=== PATIENT | female | born 1930 | race African-American/Black ===

== ENCOUNTER 2017-08-12 09:51 | Emergency (ER) | payer OTHER ==
[~2017-08-12] VITALS: Ht 170.2 cm; Wt 72.6 kg
[~2017-08-12 09:51] MED LIST: AGGRENOX1 CAP ORAL; ALPRAZOLAM PO; ALPRAZOLAM0.25 M2 ORAL; ASPIR 8181 MG ORAL; CARDIZEM CD240 MG ORAL; LISINOPRIL-HCT1 EAC2 PO; LISINOPRIL10 MG ORAL; MONTELUKAST SOD10 MG ORAL; NAPROSYN500 M1 ORAL; PRAVASTATIN SOD20 M1 ORAL; TRAMADOL HCL50 MG ORAL; VITAMIN D3 1,01 EACH PO; VITAMIN D3 PO
[2017-08-12 10:16] VITALS: BP 158/69
--- NOTE | 2017-08-12 11:50 | Diagnostic Imaging Report ---
Clinical Indication:PAIN Technique: 3 views of the right wrist Comparison: None Findings: There are degenerative changes of the first carpometacarpal joint. The remaining joint spaces are preserved. No acute fractures. No dislocations. The bones are osteoporotic. Impression: No acute bony trauma Degenerative change of the first carpometacarpal joint Osteoporosis
--- NOTE | 2017-08-12 12:17 | Emergency Room Report ---
History of Present Illness General Chief Complaint: Pain Source: Patient, Medical Record Present Illness HPI 86-year-old female presenting with right wrist pain. Patient states this morning she noted that wrist was a little bit more swollen and painful. Does not know she hit it or not. It is worse with movement. No rash, no fever no chills. Allergies: Coded Allergies: CLINDAMYCIN (Verified Allergy, Intermediate, Rash, 07/07/16) ONSET 07/30/2013 AMOXICILLIN (Verified Allergy, Unknown, 03/17/10) CODEINE (Verified Allergy, Unknown, PALPITATIONS, 07/07/16) ONSET 04/21/2006 PENICILLINS (Verified Allergy, Unknown, 07/07/16) ONSET 10/22/2009 Patient History Past Medical History: see triage record Past Surgical History: none Pertinent Family History: none Reviewed Nursing Documentation: PMH: Agreed, PSxH: Agreed Nursing Documentation-PMH Past Medical History: No History, Except For Hx Cardiac Problems: Yes Hx Hypertension: Yes Hx Cancer: No Hx Gastrointestinal Problems: No Hx Neurological Problems: No Hx Cerebrovascular Accident: Yes - 02/2014 Review of Systems All Other Systems: negative except mentioned in HPI Physical Exam Vital Signs Date Time Temp Pulse Resp B/P (MAP) Pulse Ox O2 Delivery O2 Flow Rate FiO2 08/12/17 09:54 97.7 76 18 158/69 98 Room Air Sp02 EP Interpretation: reviewed, normal General Appearance: normal inspection, well appearing, no apparent distress, alert, GCS 15, non-toxic Head: normocephalic, atraumatic Eyes: bilateral eye normal inspection, bilateral eye PERRL, bilateral eye EOMI ENT: normal ENT inspection, normal pharynx, normal voice, moist mucus membranes Neck: normal inspection, full range of motion, supple Respiratory: normal inspection, lungs clear, normal breath sounds, no respiratory distress, no retraction, no wheezing, speaking full sentences, chest symmetrical Cardiovascular #1: normal inspection, regular rate, rhythm, no edema, normal capillary refill Cardiovascular #2: 2+ radial (R), 2+ radial (L) Gastrointestinal: normal inspection, non tender, soft, non-distended, no guarding Musculoskeletal: other - Dorsum of her right hand around the first and second metacarpal joints slight edema, no rash, no snuffbox tenderness, full range of motion patient able to oppose thumb to all 4 digits. Able to extend and flex her wrist without issue Neurologic: normal inspection, alert, oriented x3, responsive, motor strength/ tone normal, sensory intact, normal gait, speech normal Psychiatric: normal inspection, judgement/insight normal, memory normal Skin: normal inspection, normal color, no rash, warm/dry, well hydrated, normal turgor Procedures Splinting Splinting : Consent: Verbal Location: R hand Pre-Made Type: velcro Splint: thumb spica Pre-Proc Neuro Vasc Exam: normal Post-Proc Neuro Vasc Exam: normal Patient Tolerated: Well Complications: None Medical Decision Making Diagnostic Impression: Primary Impression: Contusion Additional Impressions: Degenerative joint disease Right hand pain ER Course 86-year-old female with 2 days of right hand pain DDX: Contusion versus fracture Plan: Patient offered Tylenol however states that she does normally take at this time XR ER course: X-ray reported by radiologist no acute fracture degenerative joint disease Right thumb spica placed for comfort Disposition: Patient is to be discharged home Patient educated to rest, ice, and elevate extremity and to avoid vigorous activity. Strict precautions discussed with patient on when to return to the emergency room including increased redness or swelling joints, rash, increased pain/ swelling of extremity, fever or chills, which could indicate severe illness. Patient is to follow up with their primary care doctor within 3 days for repeat physical examination Please note that this Emergency Department Report was dictated using Knimbust[employer] agent technology software, occasionally this can lead to erroneous entry secondary to interpretation by the dictation equipment. Xray ordered: Right hand 3 view Indication: Pain EP Interpretation: Yes Interpretation: Degenerative joint disease, no fracture Impression: No acute disease Electronically signed by Douglas Jones MD Xray: Right wrist 3 view Complete Indication: Pain EP Interpretation: Yes Interpretation: Degenerative joint disease Impression: No acute disease Electronically signed by Douglas Jones MD Last Vital Signs Date Time Temp Pulse Resp B/P (MAP) Pulse Ox O2 Delivery O2 Flow Rate FiO2 08/12/17 10:16 97.7 18 158/69 98 Room Air 08/12/17 09:54 76 Disposition: HOME, SELF-CARE Patient Instructions: Osteoarthritis, Hand Contusion, [id number] Additional Instructions: Please followup with your doctor in 2 days for recheck without fail Please return to the emergency room if you're having rapid spread of pain, rash , fever, chills Douglas Jones M.D. Aug 12, 2017 12:17
--- NOTE | 2017-08-12 12:19 | Diagnostic Imaging Report ---
Indication: PAIN Technique: 3 views right hand Comparison: none Findings: There are degenerative changes of the first carpometacarpal joint. The remaining joint spaces are preserved. No acute fractures. No dislocations. The bones are osteoporotic Impression: No acute bony trauma Degenerative changes, as described Osteoporosis
[2017-08-12 12:45] VITALS: BP 145/65
== END 2017-08-12 12:47 | disposition home or self-care (01) ==
LOC: EMR 10:20
DX: S60.221A Contusion of right hand, initial encounter (principal); X58.XXXA Exposure to other specified factors, initial encounter; Y92.9 Unspecified place or not applicable; M19.041 Primary osteoarthritis, right hand; I10 Essential (primary) hypertension; M81.0 Age-related osteoporosis without current pathological fracture; Z86.73 Personal history of transient ischemic attack (TIA), and cerebral infarction without residual deficits; Z88.6 Allergy status to analgesic agent; Z88.0 Allergy status to penicillin
CPT/HCPCS: 99284